=== PATIENT | female | born 1935 | race Caucasian/White ===

== ENCOUNTER 2017-07-04 00:36 | Inpatient (IN) | payer OTHER ==
[2017-07-04] MEDS ORDERED: ACETAMINOPHEN 325 MG TAB PO (02:00)
[2017-07-04] MEDS: ACCU-CHEK XX (02:00)
[2017-07-04] MEDS ORDERED: DEXTROSE 50% 50 ML SYRINGE IV (02:30)
[2017-07-04] MEDS ORDERED: GLUCOSE GEL 15 GRAM TUBE BUCCAL (02:30)
[2017-07-04] MEDS ORDERED: GLUCOSE GEL 15 GRAM TUBE PO ×2 (02:30)
[2017-07-04] MEDS ORDERED: GLUCAGON 1 MG INJ IM (02:30)
[2017-07-04] MEDS: INSULIN GLARGINE [LANtus] 3 ML PEN SC ×2 (02:35→21:42)
[2017-07-04 05:35] LABS: ADD MAN DIFF? NO
[2017-07-04 05:47] LABS: BASOPHIL # 0.1 10^3/ul (0.0-0.1); BASOPHILS % 0.4 % (0.0-2.0); HEMATOCRIT 41.8 % (37.0-47.0); HEMOGLOBIN 13.7 g/dl (12.0-16.0); LYMPHOCYTES # 0.7 10^3/ul (0.8-2.9); LYMPHOCYTES % 4.7 % (15.0-51.0); MEAN CORPUSCULAR HEMOGLOBIN 28.8 pg (29.0-33.0); MEAN CORPUSCULAR HGB CONC 32.8 g/dl (32.0-37.0); MEAN PLATELET VOLUME 12.5 fl (7.4-10.4); MONOCYTE # 0.3 10^3/ul (0.3-0.9); MONOCYTES % 2.1 % (0.0-11.0); NEUTROPHIL # 14.1 10^3/ul (1.6-7.5); NEUTROPHILS % 91.9 % (39.0-77.0); PLATELET COUNT 130 10^3/UL (140-415); RED BLOOD COUNT 4.75 10^6/ul (4.20-5.40); RED CELL DISTRIBUTION WIDTH 13.8 % (11.5-14.5)
[2017-07-04 05:47] LABS: WHITE BLOOD COUNT 15.4 10^3/ul (4.8-10.8)
[2017-07-04 06:24] LABS: ALANINE AMINOTRANSFERASE 25 IU/L (13-69); ALBUMIN 4.1 g/dl (3.3-4.9); ALBUMIN/GLOBULIN RATIO 1.07; ALKALINE PHOSPHATASE 111 IU/L (42-121); ANION GAP 19 (8-16); ASPARTATE AMINO TRANSFERASE 32 IU/L (15-46); BILIRUBIN,INDIRECT 0.4 mg/dl (0-1.1); BILIRUBIN,TOTAL 0.4 mg/dl (0.2-1.3); BLOOD UREA NITROGEN 24 mg/dl (7-20); CALCIUM 9.3 mg/dl (8.4-10.2); CARBON DIOXIDE 20 mmol/L (21-31); CHLORIDE 109 mmol/L (97-110); CREATININE 0.78 mg/dl (0.44-1.00); GLUCOSE 234 mg/dl (70-220); PHOSPHORUS 2.6 mg/dl (2.5-4.9); POTASSIUM 4.3 mmol/L (3.5-5.1); SODIUM 144 mmol/L (135-144); TOTAL PROTEIN 7.9 g/dl (6.1-8.1)
[2017-07-04] MEDS: morphine 2 MG INJ IV (06:33)
[2017-07-04] MEDS: LEVOTHYROXINE 100 MCG TAB PO (06:41)
[2017-07-04 08:01] LABS: HEMOGLOBIN A1C 6.4 % (0-5.9)
[2017-07-04] MEDS: INSULIN ASPART [NOVOLOG] 3 ML PEN SC ×4 (08:55→21:00)
[2017-07-04] MEDS: ENALAPRIL 10 MG TAB PO (08:55)
[2017-07-04] MEDS: SERTRALINE 50 MG TAB PO (08:55)
[2017-07-04] MEDS ORDERED: VITAMIN A & D 5 GM OINT PACKET TOP (12:30)
[2017-07-05] MEDS: D5W-0.45 NACL + KCL 20 MEQ 1,000 ML IV ×2 (01:00→12:07)
[2017-07-05] MEDS: ACCU-CHEK XX (02:00)
[2017-07-05] MEDS: hydrALAzine 20 MG INJ IV (02:04)
[2017-07-05 05:12] LABS: ADD MAN DIFF? NO
[2017-07-05 05:21] LABS: BASOPHIL # 0.1 10^3/ul (0.0-0.1); BASOPHILS % 0.5 % (0.0-2.0); EOSINOPHILS % 0.1 % (0.0-7.0); HEMATOCRIT 39.8 % (37.0-47.0); HEMOGLOBIN 13.2 g/dl (12.0-16.0); LYMPHOCYTES # 1.1 10^3/ul (0.8-2.9); LYMPHOCYTES % 8.2 % (15.0-51.0); MEAN CORPUSCULAR HEMOGLOBIN 28.4 pg (29.0-33.0); MEAN CORPUSCULAR HGB CONC 33.2 g/dl (32.0-37.0); MEAN CORPUSCULAR VOLUME 85.6 fl (82.0-101.0); MEAN PLATELET VOLUME 12.7 fl (7.4-10.4); MONOCYTE # 0.6 10^3/ul (0.3-0.9); MONOCYTES % 4.7 % (0.0-11.0); NEUTROPHIL # 11.2 10^3/ul (1.6-7.5); NEUTROPHILS % 85.7 % (39.0-77.0); PLATELET COUNT 129 10^3/UL (140-415); RED BLOOD COUNT 4.65 10^6/ul (4.20-5.40); RED CELL DISTRIBUTION WIDTH 13.8 % (11.5-14.5)
[2017-07-05 05:21] LABS: WHITE BLOOD COUNT 13.1 10^3/ul (4.8-10.8)
[2017-07-05 05:49] LABS: ANION GAP 14 (8-16); BLOOD UREA NITROGEN 21 mg/dl (7-20); CALCIUM 9.3 mg/dl (8.4-10.2); CARBON DIOXIDE 27 mmol/L (21-31); CHLORIDE 105 mmol/L (97-110); CREATININE 0.73 mg/dl (0.44-1.00); GLUCOSE 195 mg/dl (70-220); MAGNESIUM 1.9 mg/dl (1.7-2.5); SODIUM 142 mmol/L (135-144)
[2017-07-05] MEDS ORDERED: CEFAZOLIN 1 GM/50 ML (PMX) 50 ML IVPB (07:00)
[2017-07-05] MEDS: LEVOTHYROXINE 100 MCG TAB PO (07:00)
[2017-07-05] MEDS: ENALAPRIL 10 MG TAB PO ×2 (09:00→15:29)
[2017-07-05] MEDS: SERTRALINE 50 MG TAB PO (09:00)
[2017-07-05] MEDS: INSULIN ASPART [NOVOLOG] 3 ML PEN SC ×4 (09:48→21:00)
[2017-07-05] MEDS ORDERED: morphine LIQ (10 MG/5 ML) CUP PO (14:30)
[2017-07-05] MEDS: DIGOXIN 500 MCG INJ IV (17:28)
[2017-07-05] MEDS: AMIODARONE 150MG/D5W BOLUS 100 ML IV (17:30)
[2017-07-05] MEDS: MAGNESIUM SULFATE 2 GM/50 ML 50 ML IVPB (17:31)
[2017-07-05] MEDS: ENOXAPARIN 80 MG/0.8 ML SYG SC (17:33)
[2017-07-05] MEDS: AMIODARONE 900 MG in DEXTROSE 5% 482 ML IV (18:08)
[2017-07-05] MEDS: INSULIN GLARGINE [LANtus] 3 ML PEN SC (19:59)
[2017-07-05] MEDS: METOPROLOL 50 MG TAB PO (20:18)
[2017-07-06] MEDS ORDERED: D5W-0.45 NACL + KCL 20 MEQ 1,000 ML IV
[2017-07-06] MEDS: INSULIN ASPART [NOVOLOG] 3 ML PEN SC ×6 (01:00→21:00)
[2017-07-06] MEDS: ACCU-CHEK XX (01:24)
[2017-07-06] MEDS: ENOXAPARIN 80 MG/0.8 ML SYG SC ×2 (05:14→16:52)
[2017-07-06] MEDS: LEVOTHYROXINE 100 MCG TAB PO (06:15)
[2017-07-06] MEDS: METOPROLOL 50 MG TAB PO ×3 (08:02→20:59)
[2017-07-06] MEDS: SERTRALINE 50 MG TAB PO (08:02)
[2017-07-06] MEDS: ENALAPRIL 10 MG TAB PO (08:02)
[2017-07-06 09:16] LABS: ADD MAN DIFF? NO
[2017-07-06 09:19] LABS: ABNORMAL IP MESSAGE 1; BASOPHIL # 0.1 10^3/ul (0.0-0.1); BASOPHILS % 0.8 % (0.0-2.0); EOSINOPHILS % 0.3 % (0.0-7.0); HEMATOCRIT 42.8 % (37.0-47.0); HEMOGLOBIN 14.1 g/dl (12.0-16.0); LYMPHOCYTES # 1.4 10^3/ul (0.8-2.9); LYMPHOCYTES % 13.5 % (15.0-51.0); MEAN CORPUSCULAR HEMOGLOBIN 28.4 pg (29.0-33.0); MEAN CORPUSCULAR HGB CONC 32.9 g/dl (32.0-37.0); MEAN CORPUSCULAR VOLUME 86.3 fl (82.0-101.0); MEAN PLATELET VOLUME 13.5 fl (7.4-10.4); MONOCYTE # 0.7 10^3/ul (0.3-0.9); MONOCYTES % 6.9 % (0.0-11.0); NEUTROPHIL # 8.2 10^3/ul (1.6-7.5); NEUTROPHILS % 77.8 % (39.0-77.0); PLATELET COUNT 127 10^3/UL (140-415); RED BLOOD COUNT 4.96 10^6/ul (4.20-5.40); RED CELL DISTRIBUTION WIDTH 13.7 % (11.5-14.5)
[2017-07-06 09:19] LABS: WHITE BLOOD COUNT 10.6 10^3/ul (4.8-10.8)
[2017-07-06 09:25] LABS: POSITIVE DIFF @See below
[2017-07-06 09:39] LABS: INR 1.09; PROTIME 14.3 Sec (11.9-14.9); PT RATIO 1.1
[2017-07-06 09:43] LABS: CREATINE KINASE 123 IU/L (23-200)
[2017-07-06 09:45] LABS: ALANINE AMINOTRANSFERASE 25 IU/L (13-69); ALBUMIN 3.7 g/dl (3.3-4.9); ALBUMIN/GLOBULIN RATIO 1.02; ALKALINE PHOSPHATASE 80 IU/L (42-121); ANION GAP 13 (8-16); ASPARTATE AMINO TRANSFERASE 26 IU/L (15-46); BILIRUBIN,INDIRECT 1.5 mg/dl (0-1.1); BILIRUBIN,TOTAL 1.5 mg/dl (0.2-1.3); BLOOD UREA NITROGEN 21 mg/dl (7-20); CALCIUM 9.1 mg/dl (8.4-10.2); CARBON DIOXIDE 28 mmol/L (21-31); CHLORIDE 105 mmol/L (97-110); CHOL/HDL RATIO 3.1 RATIO; CHOLESTEROL 184 mg/dl (100-200); CREATININE 0.79 mg/dl (0.44-1.00); GLUCOSE 111 mg/dl (70-220); HDL CHOLESTEROL 59 mg/dl (33-92); LDL CHOLESTEROL,CALCULATED 106 mg/dl; MAGNESIUM 2.2 mg/dl (1.7-2.5); SODIUM 142 mmol/L (135-144); TOTAL PROTEIN 7.3 g/dl (6.1-8.1); TRIGLYCERIDES 95 mg/dl (0-149)
[2017-07-06 09:54] LABS: B-TYPE NATRIURETIC PEPTIDE 2450 PG/ML (0-450)
[2017-07-06 09:56] LABS: CK INDEX 0.7; CK-MB 0.82 ng/ml (0.0-2.4)
[2017-07-06 09:57] LABS: TROPONIN-I < 0.012 ng/ml (0.00-0.12)
[2017-07-06] MEDS: AMIODARONE 200 MG TAB PO (10:59)
[2017-07-06 11:26] LABS: DIGOXIN 0.5 ng/ml (1.0-2.0)
[2017-07-06] MEDS: DEXTROSE 5%-0.45% NACL 1,000 ML IV (16:43)
[2017-07-06 19:18] LABS: FREE T4 (FREE THYROXINE) 1.55 ng/dl (0.85-1.93)
[2017-07-06] MEDS: INSULIN GLARGINE [LANtus] 3 ML PEN SC (20:07)
[2017-07-07] MEDS: morphine 2 MG INJ IV (00:51)
[2017-07-07] MEDS: hydrALAzine 20 MG INJ IV (00:52)
[2017-07-07] MEDS: INSULIN ASPART [NOVOLOG] 3 ML PEN SC ×6 (01:00→21:00)
[2017-07-07] MEDS: ACCU-CHEK XX (02:00)
[2017-07-07] MEDS: ENOXAPARIN 80 MG/0.8 ML SYG SC ×2 (05:00→17:00)
[2017-07-07] MEDS: LEVOTHYROXINE 100 MCG TAB PO (06:23)
[2017-07-07] MEDS: DEXTROSE 5%-0.45% NACL 1,000 ML IV ×2 (08:40→21:14)
[2017-07-07] MEDS: AMIODARONE 200 MG TAB PO (08:51)
[2017-07-07] MEDS: ENALAPRIL 10 MG TAB PO (08:52)
[2017-07-07] MEDS: METOPROLOL 50 MG TAB PO ×2 (08:52→21:15)
[2017-07-07] MEDS: SERTRALINE 50 MG TAB PO (08:54)
[2017-07-07 08:56] LABS: ADD MAN DIFF? NO
[2017-07-07 09:05] LABS: ABNORMAL IP MESSAGE 1; BASOPHIL # 0.1 10^3/ul (0.0-0.1); BASOPHILS % 0.9 % (0.0-2.0); EOSINOPHILS % 0.4 % (0.0-7.0); HEMATOCRIT 44.1 % (37.0-47.0); HEMOGLOBIN 14.5 g/dl (12.0-16.0); LYMPHOCYTES # 1.5 10^3/ul (0.8-2.9); LYMPHOCYTES % 16.1 % (15.0-51.0); MEAN CORPUSCULAR HEMOGLOBIN 28.6 pg (29.0-33.0); MEAN CORPUSCULAR HGB CONC 32.9 g/dl (32.0-37.0); MEAN PLATELET VOLUME 13.5 fl (7.4-10.4); MONOCYTE # 0.7 10^3/ul (0.3-0.9); MONOCYTES % 7.3 % (0.0-11.0); NEUTROPHIL # 6.8 10^3/ul (1.6-7.5); NEUTROPHILS % 74.7 % (39.0-77.0); PLATELET COUNT 156 10^3/UL (140-415); RED BLOOD COUNT 5.07 10^6/ul (4.20-5.40); RED CELL DISTRIBUTION WIDTH 13.8 % (11.5-14.5)
[2017-07-07 09:05] LABS: WHITE BLOOD COUNT 9.1 10^3/ul (4.8-10.8)
[2017-07-07 09:14] LABS: POSITIVE DIFF @See below
[2017-07-07 09:21] LABS: ALANINE AMINOTRANSFERASE 20 IU/L (13-69); ALBUMIN 3.7 g/dl (3.3-4.9); ALBUMIN/GLOBULIN RATIO 1.05; ALKALINE PHOSPHATASE 86 IU/L (42-121); ANION GAP 12 (8-16); ASPARTATE AMINO TRANSFERASE 24 IU/L (15-46); BILIRUBIN,INDIRECT 1.2 mg/dl (0-1.1); BILIRUBIN,TOTAL 1.2 mg/dl (0.2-1.3); BLOOD UREA NITROGEN 24 mg/dl (7-20); CALCIUM 9.1 mg/dl (8.4-10.2); CARBON DIOXIDE 29 mmol/L (21-31); CHLORIDE 105 mmol/L (97-110); CREATININE 0.86 mg/dl (0.44-1.00); GLUCOSE 127 mg/dl (70-220); MAGNESIUM 2.1 mg/dl (1.7-2.5); POTASSIUM 3.9 mmol/L (3.5-5.1); SODIUM 142 mmol/L (135-144); TOTAL PROTEIN 7.2 g/dl (6.1-8.1)
[2017-07-07 11:33] LABS: CREATINE KINASE 115 IU/L (23-200)
[2017-07-07 11:46] LABS: CK INDEX 0.6; CK-MB 0.64 ng/ml (0.0-2.4)
[2017-07-07 11:47] LABS: TROPONIN-I < 0.012 ng/ml (0.00-0.12)
[2017-07-07] MEDS ORDERED: MIDAZOLAM 1 MG/ML 2 ML INJ (13:23)
[2017-07-07] MEDS ORDERED: METOCLOPRAMIDE 10 MG INJ (13:26)
[2017-07-07] MEDS ORDERED: DEXAMETHASONE 4 MG/ML 1 ML INJ IV (13:30)
[2017-07-07] MEDS: LACTATED RINGER'S 1,000 ML IV (13:30)
[2017-07-07] MEDS ORDERED: LANSOPRAZOLE 30 MG CAP PO (13:30)
[2017-07-07] MEDS ORDERED: oxyCODONE (CR) 10 MG TAB [oxyCONTIN] PO (13:30)
[2017-07-07] MEDS ORDERED: CEFAZOLIN 2 GM/50 ML (PMX) 50 ML (FOR WT < 120 KG) IVPB (13:30)
[2017-07-07] MEDS ORDERED: ONDANSETRON 4 MG INJ IV ×2 (13:30→15:30)
[2017-07-07] MEDS ORDERED: ACETAMINOPHEN 1000MG/100ML IV 100 ML IVPB (13:30)
[2017-07-07] MEDS: TRANEXAMIC ACID 1,000 MG in D5W 100 ML AT CLOSURE X1 IVPB ×2 (14:00→14:42)
[2017-07-07] MEDS ORDERED: HYDROmorphONE 2 MG/ML SYG (14:16)
[2017-07-07] MEDS ORDERED: ACETAMINOPHEN 1000MG/100ML IV 100 ML (14:16)
[2017-07-07] MEDS ORDERED: ROPIVACAINE 0.5 % 30 ML VIAL (14:16)
[2017-07-07] MEDS ORDERED: PROPOFOL 20 ML (14:16)
[2017-07-07] MEDS ORDERED: EPHEDrine SULFATE 50 MG/5 ML SYG ×2 (14:16→17:41)
[2017-07-07] MEDS ORDERED: CEFAZOLIN 1 GM INJ (14:16)
[2017-07-07] MEDS ORDERED: ONDANSETRON 4 MG INJ (14:16)
[2017-07-07] MEDS ORDERED: ROCURONIUM 50 MG INJ (14:16)
[2017-07-07] MEDS: BACITRACIN 50000 UNITS INJ (14:38)
[2017-07-07] MEDS: POLYMYXIN B 500000 UNIT INJ (14:39)
[2017-07-07] MEDS: ROPIVACAINE 0.2% 60 ML, morphine SULFATE (PF) 4 MG, CLONIDINE 100 MCG, EPINEPHrine 0.3 MG INJ (14:50)
[2017-07-07] MEDS: TRANEXAMIC ACID 1,000 MG in D5W 100 ML AT INCISION X1 IVPB (14:55)
[2017-07-07] MEDS: SOD CHLORIDE 0.9% 1,000 ML IV (15:05)
[2017-07-07] MEDS ORDERED: LABETALOL HCL 20MG INJ IV (15:30)
[2017-07-07] MEDS ORDERED: SENNA/DOCUSATE NA (8.6MG/50MG) TAB PO (15:30)
[2017-07-07] MEDS ORDERED: NA PHOSPHATE/BIPHOS 133 ML ENEMA PR (15:30)
[2017-07-07] MEDS ORDERED: hydrALAzine 20 MG INJ IV (15:30)
[2017-07-07] MEDS ORDERED: TRIMETHOBENZAMIDE 100 MG/ML VIAL IM (15:30)
[2017-07-07] MEDS ORDERED: DIPHENHYDRAMINE 50 MG INJ IM (15:30)
[2017-07-07] MEDS ORDERED: BETHANECHOL 25 MG TAB PO (15:30)
[2017-07-07] MEDS ORDERED: NALOXONE (0.4 MG/ML) INJ IV (15:30)
[2017-07-07] MEDS ORDERED: NACL 0.9% 3 ML SYG IV (15:30)
[2017-07-07] MEDS ORDERED: oxyCODONE 5 MG TAB PO ×2 (15:30)
[2017-07-07] MEDS ORDERED: HYDROmorphONE (0.2 MG/ML) 10ML SYG IV ×3 (15:30)
[2017-07-07] MEDS ORDERED: BISACODYL 10 MG SUPP PR (15:30)
[2017-07-07] MEDS: CEFAZOLIN 1 GM/50 ML (PMX) 50 ML IVPB ×2 (16:09→21:14)
[2017-07-07] MEDS: DOCUSATE SODIUM 100 MG CAP PO (16:09)
[2017-07-07] MEDS: ONDANSETRON 4 MG INJ IV ×2 (16:11→21:15)
[2017-07-07] MEDS ORDERED: morphine LIQ (10 MG/5 ML) CUP PO (17:30)
[2017-07-07] MEDS ORDERED: GLYCOPYRROLATE 0.4 MG INJ ×2 (17:31→17:48)
[2017-07-07] MEDS ORDERED: NEOSTIGMINE 3 MG/3 ML SYRINGE (17:31)
[2017-07-07] MEDS: INSULIN GLARGINE [LANtus] 3 ML PEN SC (21:24)
[2017-07-08] MEDS: INSULIN ASPART [NOVOLOG] 3 ML PEN SC ×6 (01:00→21:00)
[2017-07-08] MEDS: ACCU-CHEK XX (02:00)
[2017-07-08] MEDS: ONDANSETRON 4 MG INJ IV ×2 (03:46→08:56)
[2017-07-08] MEDS: PANTOPRAZOLE (EC) 40 MG TAB PO (06:00)
[2017-07-08] MEDS: LEVOTHYROXINE 100 MCG TAB PO (06:54)
[2017-07-08] MEDS: CEFAZOLIN 1 GM/50 ML (PMX) 50 ML IVPB (07:30)
[2017-07-08] MEDS: SERTRALINE 50 MG TAB PO (08:48)
[2017-07-08] MEDS: DOCUSATE SODIUM 100 MG CAP PO ×2 (08:49→21:06)
[2017-07-08] MEDS: CELECOXIB 200 MG CAP PO ×2 (08:53→21:07)
[2017-07-08] MEDS: ENALAPRIL 10 MG TAB PO (08:54)
[2017-07-08] MEDS: METOPROLOL 50 MG TAB PO ×2 (08:55→21:07)
[2017-07-08] MEDS: AMIODARONE 200 MG TAB PO (08:55)
[2017-07-08] MEDS: FERROUS FUMARATE (SR) TAB PO ×2 (09:19→21:00)
[2017-07-08 09:23] LABS: ADD MAN DIFF? NO
[2017-07-08 09:31] LABS: BASOPHIL # 0.1 10^3/ul (0.0-0.1); BASOPHILS % 0.6 % (0.0-2.0); EOSINOPHILS # 0.1 10^3/ul (0.0-0.5); EOSINOPHILS % 0.7 % (0.0-7.0); HEMATOCRIT 37.6 % (37.0-47.0); HEMOGLOBIN 12.4 g/dl (12.0-16.0); LYMPHOCYTES # 0.9 10^3/ul (0.8-2.9); LYMPHOCYTES % 10.1 % (15.0-51.0); MEAN CORPUSCULAR HEMOGLOBIN 28.8 pg (29.0-33.0); MEAN CORPUSCULAR VOLUME 87.4 fl (82.0-101.0); MEAN PLATELET VOLUME 12.7 fl (7.4-10.4); MONOCYTE # 0.7 10^3/ul (0.3-0.9); MONOCYTES % 8.1 % (0.0-11.0); PLATELET COUNT 151 10^3/UL (140-415); RED CELL DISTRIBUTION WIDTH 13.8 % (11.5-14.5)
[2017-07-08 09:31] LABS: WHITE BLOOD COUNT 8.8 10^3/ul (4.8-10.8)
[2017-07-08 10:15] LABS: ANION GAP 12 (8-16); BLOOD UREA NITROGEN 19 mg/dl (7-20); CALCIUM 8.4 mg/dl (8.4-10.2); CARBON DIOXIDE 27 mmol/L (21-31); CHLORIDE 104 mmol/L (97-110); CREATININE 0.75 mg/dl (0.44-1.00); GLUCOSE 131 mg/dl (70-220); POTASSIUM 4.2 mmol/L (3.5-5.1); SODIUM 139 mmol/L (135-144)
[2017-07-08] MEDS: hydrALAzine 20 MG INJ IV (11:24)
[2017-07-08] MEDS: DEXTROSE 5%-0.45% NACL 1,000 ML IV (17:39)
[2017-07-08] MEDS: APIXABAN 5 MG TABLET PO (21:07)
[2017-07-08] MEDS: INSULIN GLARGINE [LANtus] 3 ML PEN SC (21:10)
[2017-07-08] MEDS: ZOLPIDEM 5 MG TAB PO (22:32)
[2017-07-09] MEDS: INSULIN ASPART [NOVOLOG] 3 ML PEN SC ×6 (01:00→21:25)
[2017-07-09] MEDS: DILTIAZEM-D5W 125MG/125ML DRIP 125 ML IV ×2 (01:54→13:33)
[2017-07-09] MEDS: ACCU-CHEK XX (02:00)
[2017-07-09] MEDS: LEVOTHYROXINE 100 MCG TAB PO (05:59)
[2017-07-09] MEDS: PANTOPRAZOLE (EC) 40 MG TAB PO (05:59)
[2017-07-09] MEDS: CELECOXIB 200 MG CAP PO ×2 (09:13→21:21)
[2017-07-09] MEDS: APIXABAN 5 MG TABLET PO ×2 (09:13→21:22)
[2017-07-09] MEDS: SERTRALINE 50 MG TAB PO (09:13)
[2017-07-09] MEDS: FERROUS FUMARATE (SR) TAB PO ×2 (09:13→21:21)
[2017-07-09] MEDS: METOPROLOL 50 MG TAB PO ×2 (09:14→21:00)
[2017-07-09] MEDS: AMIODARONE 200 MG TAB PO (09:15)
[2017-07-09] MEDS: DOCUSATE SODIUM 100 MG CAP PO ×2 (09:15→21:21)
[2017-07-09] MEDS: ENALAPRIL 10 MG TAB PO (09:15)
[2017-07-09] MEDS: DEXTROSE 5%-0.45% NACL 1,000 ML IV (10:40)
[2017-07-09 10:45] LABS: ADD MAN DIFF? NO
[2017-07-09 11:01] LABS: WHITE BLOOD COUNT 11.4 10^3/ul (4.8-10.8)
[2017-07-09 11:01] LABS: BASOPHILS % 0.4 % (0.0-2.0); EOSINOPHILS % 0.2 % (0.0-7.0); HEMOGLOBIN 12.7 g/dl (12.0-16.0); LYMPHOCYTES # 1.3 10^3/ul (0.8-2.9); LYMPHOCYTES % 11.4 % (15.0-51.0); MEAN CORPUSCULAR HEMOGLOBIN 28.7 pg (29.0-33.0); MEAN CORPUSCULAR HGB CONC 33.4 g/dl (32.0-37.0); MEAN PLATELET VOLUME 12.7 fl (7.4-10.4); MONOCYTE # 0.9 10^3/ul (0.3-0.9); MONOCYTES % 8.1 % (0.0-11.0); NEUTROPHILS % 79.4 % (39.0-77.0); PLATELET COUNT 164 10^3/UL (140-415); RED BLOOD COUNT 4.42 10^6/ul (4.20-5.40); RED CELL DISTRIBUTION WIDTH 13.4 % (11.5-14.5)
[2017-07-09 11:13] LABS: ANION GAP 15 (8-16); BLOOD UREA NITROGEN 14 mg/dl (7-20); CARBON DIOXIDE 25 mmol/L (21-31); CHLORIDE 107 mmol/L (97-110); CREATININE 0.64 mg/dl (0.44-1.00); GLUCOSE 147 mg/dl (70-220); POTASSIUM 3.7 mmol/L (3.5-5.1); SODIUM 143 mmol/L (135-144)
[2017-07-09 11:14] LABS: ALANINE AMINOTRANSFERASE 18 IU/L (13-69); ALBUMIN 3.1 g/dl (3.3-4.9); ALBUMIN/GLOBULIN RATIO 0.93; ALKALINE PHOSPHATASE 77 IU/L (42-121); ANION GAP 11 (8-16); ASPARTATE AMINO TRANSFERASE 27 IU/L (15-46); BILIRUBIN,INDIRECT 0.8 mg/dl (0-1.1); BILIRUBIN,TOTAL 0.8 mg/dl (0.2-1.3); BLOOD UREA NITROGEN 13 mg/dl (7-20); CALCIUM 8.8 mg/dl (8.4-10.2); CARBON DIOXIDE 27 mmol/L (21-31); CHLORIDE 108 mmol/L (97-110); CREATININE 0.74 mg/dl (0.44-1.00); GLUCOSE 153 mg/dl (70-220); MAGNESIUM 1.9 mg/dl (1.7-2.5); POTASSIUM 3.4 mmol/L (3.5-5.1); SODIUM 143 mmol/L (135-144); TOTAL PROTEIN 6.4 g/dl (6.1-8.1)
[2017-07-09] MEDS ORDERED: traZODone 50 MG TAB PO (15:00)
[2017-07-09] MEDS: POTASSIUM CHLORIDE 100 ML IVPB ×2 (18:30→18:31)
[2017-07-09] MEDS ORDERED: DILTIAZEM 25 MG INJ IV (19:00)
[2017-07-09] MEDS: INSULIN GLARGINE [LANtus] 3 ML PEN SC (21:23)
[2017-07-09] MEDS: MAGNESIUM SULFATE 2 GM/50 ML 50 ML IVPB (22:26)
[2017-07-10] MEDS: INSULIN ASPART [NOVOLOG] 3 ML PEN SC ×6 (01:00→21:00)
[2017-07-10] MEDS: ACCU-CHEK XX (02:00)
[2017-07-10] MEDS: DEXTROSE 5%-0.45% NACL 1,000 ML IV ×2 (03:20→03:34)
[2017-07-10] MEDS: PANTOPRAZOLE (EC) 40 MG TAB PO (06:10)
[2017-07-10] MEDS: LEVOTHYROXINE 100 MCG TAB PO (06:11)
[2017-07-10 08:56] LABS: ADD MAN DIFF? NO
[2017-07-10 08:57] LABS: BASOPHIL # 0.1 10^3/ul (0.0-0.1); BASOPHILS % 0.4 % (0.0-2.0); EOSINOPHILS # 0.3 10^3/ul (0.0-0.5); EOSINOPHILS % 2.5 % (0.0-7.0); HEMATOCRIT 33.4 % (37.0-47.0); HEMOGLOBIN 11.2 g/dl (12.0-16.0); LYMPHOCYTES # 1.4 10^3/ul (0.8-2.9); LYMPHOCYTES % 12.9 % (15.0-51.0); MEAN CORPUSCULAR HEMOGLOBIN 28.7 pg (29.0-33.0); MEAN CORPUSCULAR HGB CONC 33.5 g/dl (32.0-37.0); MEAN CORPUSCULAR VOLUME 85.6 fl (82.0-101.0); MEAN PLATELET VOLUME 12.9 fl (7.4-10.4); MONOCYTE # 0.8 10^3/ul (0.3-0.9); MONOCYTES % 6.9 % (0.0-11.0); NEUTROPHIL # 8.6 10^3/ul (1.6-7.5); NEUTROPHILS % 76.9 % (39.0-77.0); PLATELET COUNT 160 10^3/UL (140-415)
[2017-07-10 08:57] LABS: WHITE BLOOD COUNT 11.2 10^3/ul (4.8-10.8)
[2017-07-10] MEDS: DOCUSATE SODIUM 100 MG CAP PO ×2 (09:13→21:24)
[2017-07-10] MEDS: FERROUS FUMARATE (SR) TAB PO ×2 (09:13→21:25)
[2017-07-10] MEDS: CELECOXIB 200 MG CAP PO ×2 (09:13→21:25)
[2017-07-10] MEDS: APIXABAN 5 MG TABLET PO ×2 (09:13→21:26)
[2017-07-10] MEDS: SERTRALINE 50 MG TAB PO (09:14)
[2017-07-10] MEDS: ENALAPRIL 10 MG TAB PO (09:15)
[2017-07-10] MEDS: AMIODARONE 200 MG TAB PO (09:15)
[2017-07-10] MEDS: METOPROLOL 50 MG TAB PO ×2 (09:16→21:26)
[2017-07-10 09:22] LABS: ALANINE AMINOTRANSFERASE 25 IU/L (13-69); ALBUMIN 2.8 g/dl (3.3-4.9); ALKALINE PHOSPHATASE 74 IU/L (42-121); ANION GAP 10 (8-16); ASPARTATE AMINO TRANSFERASE 25 IU/L (15-46); BILIRUBIN,INDIRECT 0.5 mg/dl (0-1.1); BILIRUBIN,TOTAL 0.5 mg/dl (0.2-1.3); BLOOD UREA NITROGEN 20 mg/dl (7-20); CALCIUM 8.7 mg/dl (8.4-10.2); CARBON DIOXIDE 28 mmol/L (21-31); CHLORIDE 108 mmol/L (97-110); CREATININE 0.85 mg/dl (0.44-1.00); GLUCOSE 99 mg/dl (70-220); MAGNESIUM 2.3 mg/dl (1.7-2.5); POTASSIUM 3.9 mmol/L (3.5-5.1); SODIUM 142 mmol/L (135-144); TOTAL PROTEIN 5.9 g/dl (6.1-8.1)
[2017-07-10] MEDS: INSULIN GLARGINE [LANtus] 3 ML PEN SC (21:32)
[2017-07-11] MEDS: INSULIN ASPART [NOVOLOG] 3 ML PEN SC ×6 (01:00→21:00)
[2017-07-11] MEDS: ACCU-CHEK XX (03:00)
[2017-07-11] MEDS: PANTOPRAZOLE (EC) 40 MG TAB PO (06:33)
[2017-07-11] MEDS: LEVOTHYROXINE 100 MCG TAB PO (06:33)
[2017-07-11 08:59] LABS: ADD MAN DIFF? NO
[2017-07-11 09:03] LABS: WHITE BLOOD COUNT 11.2 10^3/ul (4.8-10.8)
[2017-07-11 09:03] LABS: ABNORMAL IP MESSAGE 1; BASOPHIL # 0.1 10^3/ul (0.0-0.1); BASOPHILS % 0.7 % (0.0-2.0); EOSINOPHILS # 0.3 10^3/ul (0.0-0.5); EOSINOPHILS % 2.5 % (0.0-7.0); HEMATOCRIT 36.5 % (37.0-47.0); LYMPHOCYTES # 1.6 10^3/ul (0.8-2.9); MEAN CORPUSCULAR HEMOGLOBIN 28.4 pg (29.0-33.0); MEAN CORPUSCULAR HGB CONC 32.9 g/dl (32.0-37.0); MEAN CORPUSCULAR VOLUME 86.5 fl (82.0-101.0); MEAN PLATELET VOLUME 13.4 fl (7.4-10.4); MONOCYTE # 0.6 10^3/ul (0.3-0.9); NEUTROPHIL # 8.6 10^3/ul (1.6-7.5); NEUTROPHILS % 77.4 % (39.0-77.0); PLATELET COUNT 144 10^3/UL (140-415); RED BLOOD COUNT 4.22 10^6/ul (4.20-5.40); RED CELL DISTRIBUTION WIDTH 13.9 % (11.5-14.5)
[2017-07-11 09:06] LABS: POSITIVE DIFF @See below
[2017-07-11] MEDS: FERROUS FUMARATE (SR) TAB PO ×2 (09:23→21:32)
[2017-07-11] MEDS: SERTRALINE 50 MG TAB PO (09:23)
[2017-07-11] MEDS: APIXABAN 5 MG TABLET PO ×2 (09:23→21:32)
[2017-07-11] MEDS: ENALAPRIL 10 MG TAB PO (09:24)
[2017-07-11] MEDS: CELECOXIB 200 MG CAP PO ×2 (09:24→21:32)
[2017-07-11] MEDS: METOPROLOL 50 MG TAB PO ×2 (09:25→21:32)
[2017-07-11] MEDS: AMIODARONE 200 MG TAB PO (09:25)
[2017-07-11 09:58] LABS: ANION GAP 12 (8-16); BLOOD UREA NITROGEN 15 mg/dl (7-20); CALCIUM 8.7 mg/dl (8.4-10.2); CARBON DIOXIDE 27 mmol/L (21-31); CHLORIDE 110 mmol/L (97-110); CREATININE 0.67 mg/dl (0.44-1.00); GLUCOSE 117 mg/dl (70-220); POTASSIUM 4.1 mmol/L (3.5-5.1); SODIUM 145 mmol/L (135-144)
[2017-07-11] MEDS: DEXTROSE 5%-0.45% NACL 1,000 ML IV (12:40)
[2017-07-11] MEDS: DILTIAZEM 25 MG INJ IV (13:30)
[2017-07-11] MEDS: MAGNESIUM HYDROXIDE 30ML CUP PO (15:06)
[2017-07-11] MEDS: INSULIN GLARGINE [LANtus] 3 ML PEN SC (21:33)
[2017-07-12] MEDS: INSULIN ASPART [NOVOLOG] 3 ML PEN SC ×6 (01:00→21:00)
[2017-07-12] MEDS: ACCU-CHEK XX (02:39)
[2017-07-12] MEDS: PANTOPRAZOLE (EC) 40 MG TAB PO (05:56)
[2017-07-12] MEDS: LEVOTHYROXINE 100 MCG TAB PO (07:00)
[2017-07-12 09:00] LABS: ADD MAN DIFF? NO
[2017-07-12 09:04] LABS: BASOPHIL # 0.1 10^3/ul (0.0-0.1); BASOPHILS % 0.7 % (0.0-2.0); EOSINOPHILS # 0.3 10^3/ul (0.0-0.5); EOSINOPHILS % 2.1 % (0.0-7.0); HEMATOCRIT 35.1 % (37.0-47.0); HEMOGLOBIN 11.9 g/dl (12.0-16.0); LYMPHOCYTES # 1.9 10^3/ul (0.8-2.9); LYMPHOCYTES % 16.4 % (15.0-51.0); MEAN CORPUSCULAR HGB CONC 33.9 g/dl (32.0-37.0); MEAN CORPUSCULAR VOLUME 85.4 fl (82.0-101.0); MEAN PLATELET VOLUME 11.7 fl (7.4-10.4); MONOCYTE # 0.8 10^3/ul (0.3-0.9); MONOCYTES % 6.4 % (0.0-11.0); NEUTROPHIL # 8.6 10^3/ul (1.6-7.5); NEUTROPHILS % 73.5 % (39.0-77.0); PLATELET COUNT 223 10^3/UL (140-415); RED BLOOD COUNT 4.11 10^6/ul (4.20-5.40); RED CELL DISTRIBUTION WIDTH 13.5 % (11.5-14.5)
[2017-07-12 09:04] LABS: WHITE BLOOD COUNT 11.7 10^3/ul (4.8-10.8)
[2017-07-12] MEDS: CELECOXIB 200 MG CAP PO ×2 (09:09→21:03)
[2017-07-12] MEDS: SERTRALINE 50 MG TAB PO (09:09)
[2017-07-12] MEDS: APIXABAN 5 MG TABLET PO ×2 (09:09→21:04)
[2017-07-12] MEDS: ENALAPRIL 10 MG TAB PO (09:09)
[2017-07-12] MEDS: FERROUS FUMARATE (SR) TAB PO ×2 (09:09→21:03)
[2017-07-12] MEDS: METOPROLOL 50 MG TAB PO ×2 (09:10→21:00)
[2017-07-12] MEDS: AMIODARONE 200 MG TAB PO (09:11)
[2017-07-12 09:21] LABS: ANION GAP 9 (8-16); BLOOD UREA NITROGEN 15 mg/dl (7-20); CALCIUM 8.6 mg/dl (8.4-10.2); CARBON DIOXIDE 31 mmol/L (21-31); CHLORIDE 107 mmol/L (97-110); CREATININE 0.69 mg/dl (0.44-1.00); GLUCOSE 102 mg/dl (70-220); POTASSIUM 3.9 mmol/L (3.5-5.1); SODIUM 143 mmol/L (135-144)
[2017-07-12] MEDS: DEXTROSE 5%-0.45% NACL 1,000 ML IV (10:45)
[2017-07-12] MEDS: INSULIN GLARGINE [LANtus] 3 ML PEN SC (21:22)
[2017-07-13] MEDS: INSULIN ASPART [NOVOLOG] 3 ML PEN SC ×6 (01:00→20:39)
[2017-07-13] MEDS: ACCU-CHEK XX (02:00)
[2017-07-13] MEDS: DEXTROSE 5%-0.45% NACL 1,000 ML IV ×2 (03:51→14:40)
[2017-07-13] MEDS: PANTOPRAZOLE (EC) 40 MG TAB PO (05:57)
[2017-07-13] MEDS: LEVOTHYROXINE 100 MCG TAB PO (06:10)
[2017-07-13 07:52] LABS: ADD MAN DIFF? NO
[2017-07-13 08:01] LABS: BASOPHIL # 0.1 10^3/ul (0.0-0.1); BASOPHILS % 0.8 % (0.0-2.0); EOSINOPHILS # 0.3 10^3/ul (0.0-0.5); HEMATOCRIT 35.1 % (37.0-47.0); HEMOGLOBIN 11.4 g/dl (12.0-16.0); LYMPHOCYTES # 1.9 10^3/ul (0.8-2.9); LYMPHOCYTES % 17.7 % (15.0-51.0); MEAN CORPUSCULAR HGB CONC 32.5 g/dl (32.0-37.0); MEAN CORPUSCULAR VOLUME 86.2 fl (82.0-101.0); MEAN PLATELET VOLUME 12.6 fl (7.4-10.4); MONOCYTE # 0.6 10^3/ul (0.3-0.9); NEUTROPHIL # 7.6 10^3/ul (1.6-7.5); NEUTROPHILS % 71.5 % (39.0-77.0); PLATELET COUNT 248 10^3/UL (140-415); RED BLOOD COUNT 4.07 10^6/ul (4.20-5.40); RED CELL DISTRIBUTION WIDTH 13.5 % (11.5-14.5)
[2017-07-13 08:01] LABS: WHITE BLOOD COUNT 10.6 10^3/ul (4.8-10.8)
[2017-07-13 08:24] LABS: ANION GAP 10 (8-16); BLOOD UREA NITROGEN 12 mg/dl (7-20); CALCIUM 8.7 mg/dl (8.4-10.2); CARBON DIOXIDE 31 mmol/L (21-31); CHLORIDE 107 mmol/L (97-110); CREATININE 0.72 mg/dl (0.44-1.00); GLUCOSE 82 mg/dl (70-220); POTASSIUM 3.5 mmol/L (3.5-5.1); SODIUM 144 mmol/L (135-144)
[2017-07-13] MEDS: SERTRALINE 50 MG TAB PO (09:16)
[2017-07-13] MEDS: ENALAPRIL 10 MG TAB PO (09:17)
[2017-07-13] MEDS: METOPROLOL 50 MG TAB PO (09:17)
[2017-07-13] MEDS: AMIODARONE 200 MG TAB PO (09:18)
[2017-07-13] MEDS: CELECOXIB 200 MG CAP PO ×2 (09:18→20:33)
[2017-07-13] MEDS: FERROUS FUMARATE (SR) TAB PO ×2 (09:18→20:33)
[2017-07-13] MEDS: APIXABAN 5 MG TABLET PO ×2 (09:19→20:22)
[2017-07-13] MEDS: METOPROLOL 25 MG TAB PO (20:33)
[2017-07-13] MEDS: INSULIN GLARGINE [LANtus] 3 ML PEN SC (20:48)
[2017-07-13] MEDS: oxyCODONE 5 MG TAB PO (23:57)
[2017-07-14] MEDS: INSULIN ASPART [NOVOLOG] 3 ML PEN SC ×6 (01:00→20:26)
[2017-07-14] MEDS: ACCU-CHEK XX ×2 (02:00→23:13)
[2017-07-14] MEDS: PANTOPRAZOLE (EC) 40 MG TAB PO (06:29)
[2017-07-14] MEDS: LEVOTHYROXINE 100 MCG TAB PO (06:29)
[2017-07-14] MEDS: DEXTROSE 5%-0.45% NACL 1,000 ML IV ×2 (06:32→23:13)
[2017-07-14] MEDS: CELECOXIB 200 MG CAP PO ×2 (08:42→20:26)
[2017-07-14] MEDS: ENALAPRIL 10 MG TAB PO (08:43)
[2017-07-14] MEDS: AMIODARONE 200 MG TAB PO (08:44)
[2017-07-14] MEDS: SERTRALINE 50 MG TAB PO (08:44)
[2017-07-14] MEDS: FERROUS FUMARATE (SR) TAB PO ×2 (08:44→20:26)
[2017-07-14] MEDS: METOPROLOL 25 MG TAB PO ×2 (08:44→20:26)
[2017-07-14] MEDS: APIXABAN 5 MG TABLET PO (08:45)
[2017-07-14 09:51] LABS: ADD MAN DIFF? NO
[2017-07-14 10:01] LABS: WHITE BLOOD COUNT 10.6 10^3/ul (4.8-10.8)
[2017-07-14 10:01] LABS: BASOPHIL # 0.1 10^3/ul (0.0-0.1); BASOPHILS % 0.8 % (0.0-2.0); EOSINOPHILS # 0.3 10^3/ul (0.0-0.5); EOSINOPHILS % 2.9 % (0.0-7.0); HEMATOCRIT 35.2 % (37.0-47.0); HEMOGLOBIN 11.8 g/dl (12.0-16.0); LYMPHOCYTES # 2.5 10^3/ul (0.8-2.9); MEAN CORPUSCULAR HEMOGLOBIN 28.7 pg (29.0-33.0); MEAN CORPUSCULAR HGB CONC 33.5 g/dl (32.0-37.0); MEAN CORPUSCULAR VOLUME 85.6 fl (82.0-101.0); MONOCYTE # 0.6 10^3/ul (0.3-0.9); MONOCYTES % 5.3 % (0.0-11.0); NEUTROPHILS % 65.8 % (39.0-77.0); PLATELET COUNT 255 10^3/UL (140-415); RED BLOOD COUNT 4.11 10^6/ul (4.20-5.40); RED CELL DISTRIBUTION WIDTH 13.3 % (11.5-14.5)
[2017-07-14 10:32] LABS: ANION GAP 10 (8-16); BLOOD UREA NITROGEN 11 mg/dl (7-20); CALCIUM 8.5 mg/dl (8.4-10.2); CARBON DIOXIDE 30 mmol/L (21-31); CHLORIDE 106 mmol/L (97-110); CREATININE 0.77 mg/dl (0.44-1.00); GLUCOSE 110 mg/dl (70-220); POTASSIUM 3.7 mmol/L (3.5-5.1); SODIUM 142 mmol/L (135-144)
[2017-07-14] MEDS: INSULIN GLARGINE [LANtus] 3 ML PEN SC (20:31)
[2017-07-15] MEDS: INSULIN ASPART [NOVOLOG] 3 ML PEN SC ×6 (00:10→21:00)
[2017-07-15] MEDS: PANTOPRAZOLE (EC) 40 MG TAB PO (04:55)
[2017-07-15] MEDS: LEVOTHYROXINE 100 MCG TAB PO (06:33)
[2017-07-15] MEDS: SERTRALINE 50 MG TAB PO (08:13)
[2017-07-15] MEDS: FERROUS FUMARATE (SR) TAB PO ×2 (08:13→23:58)
[2017-07-15] MEDS: CELECOXIB 200 MG CAP PO ×2 (08:13→21:04)
[2017-07-15] MEDS: ENOXAPARIN 60 MG/0.6 ML SYG SC ×2 (08:14→21:08)
[2017-07-15] MEDS: ENALAPRIL 10 MG TAB PO (08:16)
[2017-07-15] MEDS: AMIODARONE 200 MG TAB PO (08:17)
[2017-07-15] MEDS: METOPROLOL 25 MG TAB PO ×2 (08:18→21:04)
[2017-07-15 09:04] LABS: ADD MAN DIFF? NO
[2017-07-15 09:08] LABS: WHITE BLOOD COUNT 9.6 10^3/ul (4.8-10.8)
[2017-07-15 09:08] LABS: BASOPHIL # 0.1 10^3/ul (0.0-0.1); EOSINOPHILS # 0.3 10^3/ul (0.0-0.5); HEMATOCRIT 35.1 % (37.0-47.0); HEMOGLOBIN 11.6 g/dl (12.0-16.0); LYMPHOCYTES # 2.5 10^3/ul (0.8-2.9); LYMPHOCYTES % 25.8 % (15.0-51.0); MEAN CORPUSCULAR HEMOGLOBIN 28.3 pg (29.0-33.0); MEAN CORPUSCULAR VOLUME 85.6 fl (82.0-101.0); MEAN PLATELET VOLUME 11.8 fl (7.4-10.4); MONOCYTE # 0.5 10^3/ul (0.3-0.9); MONOCYTES % 5.5 % (0.0-11.0); NEUTROPHIL # 6.1 10^3/ul (1.6-7.5); NEUTROPHILS % 63.8 % (39.0-77.0); PLATELET COUNT 243 10^3/UL (140-415); RED CELL DISTRIBUTION WIDTH 13.4 % (11.5-14.5)
[2017-07-15 09:09] LABS: PROTIME 14.4 Sec (11.9-14.9); PT RATIO 1.1
[2017-07-15 09:38] LABS: ALANINE AMINOTRANSFERASE 32 IU/L (13-69); ALBUMIN 2.9 g/dl (3.3-4.9); ALBUMIN/GLOBULIN RATIO 0.85; ALKALINE PHOSPHATASE 100 IU/L (42-121); ANION GAP 12 (8-16); ASPARTATE AMINO TRANSFERASE 26 IU/L (15-46); BILIRUBIN,INDIRECT 0.4 mg/dl (0-1.1); BILIRUBIN,TOTAL 0.4 mg/dl (0.2-1.3); BLOOD UREA NITROGEN 11 mg/dl (7-20); CALCIUM 8.4 mg/dl (8.4-10.2); CARBON DIOXIDE 29 mmol/L (21-31); CHLORIDE 107 mmol/L (97-110); CREATININE 0.76 mg/dl (0.44-1.00); GLUCOSE 90 mg/dl (70-220); MAGNESIUM 2.2 mg/dl (1.7-2.5); POTASSIUM 3.8 mmol/L (3.5-5.1); SODIUM 144 mmol/L (135-144); TOTAL PROTEIN 6.3 g/dl (6.1-8.1)
[2017-07-15] MEDS: ASPIRIN (EC) 81 MG TAB PO (14:35)
[2017-07-15] MEDS: DEXTROSE 5%-0.45% NACL 1,000 ML IV (16:51)
[2017-07-15] MEDS: DEXTROSE 5%-0.9% NACL 1,000 ML IV (21:00)
[2017-07-15] MEDS: INSULIN GLARGINE [LANtus] 3 ML PEN SC (21:06)
[2017-07-16] MEDS: INSULIN ASPART [NOVOLOG] 3 ML PEN SC ×6 (00:01→20:38)
[2017-07-16] MEDS: ACCU-CHEK XX (02:00)
[2017-07-16] MEDS: DEXTROSE 50% 50 ML SYRINGE IV (05:24)
[2017-07-16] MEDS: PANTOPRAZOLE (EC) 40 MG TAB PO (05:24)
[2017-07-16] MEDS: DEXTROSE 5%-0.9% NACL 1,000 ML IV (05:29)
[2017-07-16] MEDS: LEVOTHYROXINE 100 MCG TAB PO (05:32)
[2017-07-16 06:48] LABS: ADD MAN DIFF? NO
[2017-07-16 06:59] LABS: BASOPHIL # 0.1 10^3/ul (0.0-0.1); BASOPHILS % 0.7 % (0.0-2.0); EOSINOPHILS # 0.3 10^3/ul (0.0-0.5); EOSINOPHILS % 3.8 % (0.0-7.0); HEMATOCRIT 32.7 % (37.0-47.0); HEMOGLOBIN 10.7 g/dl (12.0-16.0); LYMPHOCYTES # 1.8 10^3/ul (0.8-2.9); LYMPHOCYTES % 19.6 % (15.0-51.0); MEAN CORPUSCULAR HGB CONC 32.7 g/dl (32.0-37.0); MEAN CORPUSCULAR VOLUME 85.6 fl (82.0-101.0); MEAN PLATELET VOLUME 12.1 fl (7.4-10.4); MONOCYTE # 0.5 10^3/ul (0.3-0.9); MONOCYTES % 5.8 % (0.0-11.0); NEUTROPHIL # 6.2 10^3/ul (1.6-7.5); NEUTROPHILS % 69.1 % (39.0-77.0); PLATELET COUNT 283 10^3/UL (140-415); RED BLOOD COUNT 3.82 10^6/ul (4.20-5.40); RED CELL DISTRIBUTION WIDTH 13.4 % (11.5-14.5)
[2017-07-16] MEDS ORDERED: PROPOFOL 200 MG INJ (07:00)
[2017-07-16 07:16] LABS: ALANINE AMINOTRANSFERASE 19 IU/L (13-69); ALBUMIN 2.9 g/dl (3.3-4.9); ALBUMIN/GLOBULIN RATIO 0.93; ALKALINE PHOSPHATASE 89 IU/L (42-121); ASPARTATE AMINO TRANSFERASE 20 IU/L (15-46); BILIRUBIN,INDIRECT 0.2 mg/dl (0-1.1); BILIRUBIN,TOTAL 0.2 mg/dl (0.2-1.3); BLOOD UREA NITROGEN 12 mg/dl (7-20); CALCIUM 8.5 mg/dl (8.4-10.2); CARBON DIOXIDE 29 mmol/L (21-31); CREATININE 0.75 mg/dl (0.44-1.00); GLUCOSE 130 mg/dl (70-220); POTASSIUM 3.5 mmol/L (3.5-5.1); SODIUM 145 mmol/L (135-144)
[2017-07-16 07:22] LABS: ANION GAP 14 (8-16); CHLORIDE 106 mmol/L (97-110)
[2017-07-16 07:30] LABS: INR 1.09; PROTIME 14.2 Sec (11.9-14.9); PT RATIO 1.1
[2017-07-16] MEDS: FERROUS FUMARATE (SR) TAB PO ×2 (08:14→20:37)
[2017-07-16] MEDS: CELECOXIB 200 MG CAP PO ×2 (08:14→20:37)
[2017-07-16] MEDS: ASPIRIN (EC) 81 MG TAB PO (08:18)
[2017-07-16] MEDS: SERTRALINE 50 MG TAB PO (08:24)
[2017-07-16] MEDS: METOPROLOL 25 MG TAB PO (08:24)
[2017-07-16] MEDS: ENALAPRIL 20 MG TAB PO (08:24)
[2017-07-16] MEDS: AMIODARONE 200 MG TAB PO (08:24)
[2017-07-16] MEDS ORDERED: LIDOCAINE 1% (MDV) 20 ML INJ (11:45)
[2017-07-16] MEDS ORDERED: POLYMYXIN/BACITRACIN 1L IRRIG (11:50)
[2017-07-16] MEDS ORDERED: CEFAZOLIN 2 GM/50 ML (PMX) 50 ML IVPB (12:09)
[2017-07-16] MEDS ORDERED: LIDOCAINE 1%/EPI 30 ML INJ (12:38)
[2017-07-16] MEDS ORDERED: morphine 2 MG INJ IV (14:00)
[2017-07-16] MEDS ORDERED: CEFAZOLIN 1 GM/50 ML (PMX) 50 ML IVPB (14:00)
[2017-07-16] MEDS: hydrALAzine 20 MG INJ IV (14:32)
[2017-07-16] MEDS: POTASSIUM CHLORIDE (SR) 10 MEQ TAB PO (16:24)
[2017-07-16] MEDS: METOPROLOL 50 MG TAB PO (20:38)
[2017-07-16] MEDS: INSULIN GLARGINE [LANtus] 3 ML PEN SC (20:43)
[2017-07-17] MEDS: CEFAZOLIN 1 GM/50 ML (PMX) 50 ML IVPB ×3 (00:21→13:59)
[2017-07-17] MEDS: ACCU-CHEK XX (02:00)
[2017-07-17] MEDS: hydrALAzine 20 MG INJ IV (04:16)
[2017-07-17] MEDS: PANTOPRAZOLE (EC) 40 MG TAB PO (05:42)
[2017-07-17] MEDS: LEVOTHYROXINE 100 MCG TAB PO (05:42)
[2017-07-17] MEDS: INSULIN ASPART [NOVOLOG] 3 ML PEN SC ×4 (08:00→20:34)
[2017-07-17] MEDS: CELECOXIB 200 MG CAP PO ×2 (08:14→20:32)
[2017-07-17] MEDS: ENALAPRIL 20 MG TAB PO (08:17)
[2017-07-17] MEDS: SERTRALINE 50 MG TAB PO (08:17)
[2017-07-17] MEDS: AMIODARONE 200 MG TAB PO (08:18)
[2017-07-17] MEDS: METOPROLOL 50 MG TAB PO ×2 (08:19→20:32)
[2017-07-17 08:41] LABS: ADD MAN DIFF? NO
[2017-07-17 08:46] LABS: BASOPHIL # 0.1 10^3/ul (0.0-0.1); BASOPHILS % 0.5 % (0.0-2.0); EOSINOPHILS # 0.1 10^3/ul (0.0-0.5); EOSINOPHILS % 0.9 % (0.0-7.0); HEMATOCRIT 34.6 % (37.0-47.0); HEMOGLOBIN 11.4 g/dl (12.0-16.0); LYMPHOCYTES # 1.4 10^3/ul (0.8-2.9); LYMPHOCYTES % 10.9 % (15.0-51.0); MEAN CORPUSCULAR HEMOGLOBIN 28.5 pg (29.0-33.0); MEAN CORPUSCULAR HGB CONC 32.9 g/dl (32.0-37.0); MEAN CORPUSCULAR VOLUME 86.5 fl (82.0-101.0); MEAN PLATELET VOLUME 12.1 fl (7.4-10.4); MONOCYTE # 0.6 10^3/ul (0.3-0.9); MONOCYTES % 4.8 % (0.0-11.0); NEUTROPHIL # 10.6 10^3/ul (1.6-7.5); NEUTROPHILS % 82.3 % (39.0-77.0); PLATELET COUNT 257 10^3/UL (140-415); RED CELL DISTRIBUTION WIDTH 13.6 % (11.5-14.5)
[2017-07-17 08:46] LABS: WHITE BLOOD COUNT 12.8 10^3/ul (4.8-10.8)
[2017-07-17 09:13] LABS: ALANINE AMINOTRANSFERASE 21 IU/L (13-69); ALBUMIN 2.9 g/dl (3.3-4.9); ALBUMIN/GLOBULIN RATIO 0.74; ALKALINE PHOSPHATASE 99 IU/L (42-121); ANION GAP 14 (8-16); ASPARTATE AMINO TRANSFERASE 27 IU/L (15-46); BILIRUBIN,INDIRECT 0.3 mg/dl (0-1.1); BILIRUBIN,TOTAL 0.3 mg/dl (0.2-1.3); BLOOD UREA NITROGEN 13 mg/dl (7-20); CALCIUM 8.8 mg/dl (8.4-10.2); CARBON DIOXIDE 26 mmol/L (21-31); CHLORIDE 106 mmol/L (97-110); CREATININE 0.84 mg/dl (0.44-1.00); GLUCOSE 92 mg/dl (70-220); POTASSIUM 4.3 mmol/L (3.5-5.1); SODIUM 142 mmol/L (135-144); TOTAL PROTEIN 6.8 g/dl (6.1-8.1)
[2017-07-17 09:17] LABS: B-TYPE NATRIURETIC PEPTIDE 1080 PG/ML (0-450)
[2017-07-17] MEDS: FERROUS FUMARATE (SR) TAB PO ×2 (10:08→20:31)
[2017-07-17] MEDS: INSULIN GLARGINE [LANtus] 3 ML PEN SC (20:33)
[2017-07-18] MEDS: ACCU-CHEK XX (02:00)
[2017-07-18] MEDS: DEXTROSE 50% 50 ML SYRINGE IV (04:50)
[2017-07-18] MEDS: PANTOPRAZOLE (EC) 40 MG TAB PO (04:56)
[2017-07-18] MEDS: LEVOTHYROXINE 100 MCG TAB PO (04:56)
[2017-07-18] MEDS: INSULIN ASPART [NOVOLOG] 3 ML PEN SC ×4 (08:00→21:00)
[2017-07-18] MEDS: SERTRALINE 50 MG TAB PO (08:14)
[2017-07-18] MEDS: AMIODARONE 200 MG TAB PO (08:14)
[2017-07-18] MEDS: CELECOXIB 200 MG CAP PO ×2 (08:14→21:35)
[2017-07-18] MEDS: METOPROLOL 50 MG TAB PO ×2 (08:15→21:35)
[2017-07-18] MEDS: ENALAPRIL 20 MG TAB PO (08:20)
[2017-07-18] MEDS: FERROUS FUMARATE (SR) TAB PO ×2 (09:49→21:35)
[2017-07-18] MEDS: INSULIN GLARGINE [LANtus] 3 ML PEN SC (21:37)
[2017-07-19] MEDS: ACCU-CHEK XX (01:38)
[2017-07-19] MEDS: LEVOTHYROXINE 100 MCG TAB PO (06:05)
[2017-07-19] MEDS: PANTOPRAZOLE (EC) 40 MG TAB PO (06:05)
[2017-07-19] MEDS: INSULIN ASPART [NOVOLOG] 3 ML PEN SC ×3 (08:00→17:12)
[2017-07-19] MEDS: METOPROLOL 50 MG TAB PO (08:55)
[2017-07-19] MEDS: AMIODARONE 200 MG TAB PO (08:56)
[2017-07-19] MEDS: CELECOXIB 200 MG CAP PO (08:56)
[2017-07-19] MEDS: SERTRALINE 50 MG TAB PO (08:57)
[2017-07-19 08:58] LABS: ADD MAN DIFF? NO
[2017-07-19] MEDS: APIXABAN 5 MG TABLET PO (09:03)
[2017-07-19] MEDS: FERROUS FUMARATE (SR) TAB PO (09:03)
[2017-07-19 09:05] LABS: BASOPHIL # 0.1 10^3/ul (0.0-0.1); BASOPHILS % 0.9 % (0.0-2.0); EOSINOPHILS # 0.4 10^3/ul (0.0-0.5); EOSINOPHILS % 4.2 % (0.0-7.0); HEMATOCRIT 35.3 % (37.0-47.0); HEMOGLOBIN 11.4 g/dl (12.0-16.0); LYMPHOCYTES # 1.9 10^3/ul (0.8-2.9); LYMPHOCYTES % 20.4 % (15.0-51.0); MEAN CORPUSCULAR HEMOGLOBIN 27.9 pg (29.0-33.0); MEAN CORPUSCULAR HGB CONC 32.3 g/dl (32.0-37.0); MEAN CORPUSCULAR VOLUME 86.5 fl (82.0-101.0); MEAN PLATELET VOLUME 11.7 fl (7.4-10.4); MONOCYTE # 0.5 10^3/ul (0.3-0.9); MONOCYTES % 5.7 % (0.0-11.0); NEUTROPHIL # 6.5 10^3/ul (1.6-7.5); NEUTROPHILS % 68.1 % (39.0-77.0); PLATELET COUNT 230 10^3/UL (140-415); RED BLOOD COUNT 4.08 10^6/ul (4.20-5.40); RED CELL DISTRIBUTION WIDTH 14.1 % (11.5-14.5)
[2017-07-19 09:05] LABS: WHITE BLOOD COUNT 9.5 10^3/ul (4.8-10.8)
[2017-07-19] MEDS: ENALAPRIL 20 MG TAB PO (09:08)
[2017-07-19 09:39] LABS: ANION GAP 13 (8-16); BLOOD UREA NITROGEN 20 mg/dl (7-20); CALCIUM 8.9 mg/dl (8.4-10.2); CARBON DIOXIDE 29 mmol/L (21-31); CHLORIDE 106 mmol/L (97-110); CREATININE 0.87 mg/dl (0.44-1.00); GLUCOSE 79 mg/dl (70-220); MAGNESIUM 2.1 mg/dl (1.7-2.5); PHOSPHORUS 3.4 mg/dl (2.5-4.9); POTASSIUM 4.3 mmol/L (3.5-5.1); SODIUM 144 mmol/L (135-144)
[2017-07-19] MEDS ORDERED: APIXABAN 5 MG TABLET PO (21:00)
== END 2017-07-19 18:50 | DRG 470 ==
LOC: MS1 00:36 → MS4 07-05 17:15
PROVIDERS: Internal Medicine
PROC: 0SR902A Replacement of Right Hip Joint with Metal on Polyethylene Synthetic Substitute, Uncemented, Open Approach (ICD-10-PCS; principal; 2017-07-07 13:24)
PROC: 0JH606Z Insertion of Pacemaker, Dual Chamber into Chest Subcutaneous Tissue and Fascia, Open Approach (ICD-10-PCS; 2017-07-07 13:24)
PROC: 02H63JZ Insertion of Pacemaker Lead into Right Atrium, Percutaneous Approach (ICD-10-PCS; 2017-07-07 13:24)
PROC: 02HK3JZ Insertion of Pacemaker Lead into Right Ventricle, Percutaneous Approach (ICD-10-PCS; 2017-07-07 13:24)
DX: S72.011A Unspecified intracapsular fracture of right femur, initial encounter for closed fracture (principal); E87.8 Other disorders of electrolyte and fluid balance, not elsewhere classified; F03.90 Unspecified dementia, unspecified severity, without behavioral disturbance, psychotic disturbance, mood disturbance, and anxiety; I49.5 Sick sinus syndrome; R13.10 Dysphagia, unspecified; R00.1 Bradycardia, unspecified; E11.9 Type 2 diabetes mellitus without complications; I48.0 Paroxysmal atrial fibrillation; I10 Essential (primary) hypertension; W01.0XXA Fall on same level from slipping, tripping and stumbling without subsequent striking against object, initial encounter; E03.9 Hypothyroidism, unspecified; E78.5 Hyperlipidemia, unspecified; I45.5 Other specified heart block; R41.0 Disorientation, unspecified; Z86.73 Personal history of transient ischemic attack (TIA), and cerebral infarction without residual deficits; Z79.84 Long term (current) use of oral hypoglycemic drugs
CPT/HCPCS: 71045; 72170; 73500; 73510; 80048; 80053; 80061; 80162; 82550; 82553; 82962; 83036; 83735; 83880; 84100; 84439; 84443; 84484; 85025; 85610; 87081; 87086; 88305; 88311; 92526; 92610; 93005; 93306; 97110; 97116; 97162; 97166; 97530

== ENCOUNTER → 2017-08-13 | Outpatient (CLI) | payer OTHER | END | disposition home or self-care (01) | LOC: HKI 10:45 | DX: Z09 Encounter for follow-up examination after completed treatment for conditions other than malignant neoplasm (principal); S72.001D Fracture of unspecified part of neck of right femur, subsequent encounter for closed fracture with routine healing; X58.XXXD Exposure to other specified factors, subsequent encounter | CPT/HCPCS: 73502 ==

== ENCOUNTER → 2017-11-15 | Outpatient (CLI) | payer OTHER | END | disposition home or self-care (01) | LOC: HKI 11:25 | DX: Z09 Encounter for follow-up examination after completed treatment for conditions other than malignant neoplasm (principal); Z96.641 Presence of right artificial hip joint | CPT/HCPCS: 73502 ==